=== PATIENT | male | born 1990 | race African-American/Black ===

== ENCOUNTER 2017-08-20 05:02 | Emergency (ER) | payer SELFPAY ==
[~2017-08-20] VITALS: Ht 193 cm; Wt 66.0 kg
[2017-08-20] MEDS ORDERED: AZITHROMYCIN 500 MG TABLET PO ONE (06:30)
[2017-08-20] MEDS ORDERED: CEFTRIAXONE SODIUM 250 MG/VIAL IM ONE (06:30)
[2017-08-20 06:55] LABS: CHLORIDE 104 mEq/L (98-107)
[2017-08-20 07:17] LABS: CLARITY URINE CLEAR (CLEAR); COLOR URINE YELLOW (YELLOW); KETONES URINE NEGATIVE (NEGATIVE); LEUKOCYTE ESTERASE URINE NEGATIVE (NEGATIVE); NITRITE URINE NEGATIVE (NEGATIVE); OCCULT BLOOD URINE NEGATIVE (NEGATIVE); PH URINE 5.5 (4.5-8.0); PROTEIN URINE NEGATIVE (NEGATIVE); SPECIFIC GRAVITY URINE 1.023 (1.005-1.030); UROBILINOGEN URINE 0.2 E.U./dL (0.2-1.0)
[2017-08-20 07:35] VITALS: BP 131/78
== END 2017-08-20 07:54 | disposition home or self-care (01) ==
LOC: ER 05:35
DX: Z20.6 Contact with and (suspected) exposure to human immunodeficiency virus [HIV] (principal); F12.10 Cannabis abuse, uncomplicated
CPT/HCPCS: 36415; 80053; 81003; 96372; 99284; J0696